=== PATIENT | male | born 1995 | race Hispanic/Latino ===

== ENCOUNTER 2024-12-20 22:17 | Emergency (ER) | payer SELFPAY ==
[~2024-12-20 22:17] MED LIST: Iopamidol-370 76% 500 ML MDV (1 ML CHARGE) ONE
[2024-12-20] MEDS ORDERED: Lidocaine 1% w/Epinephrine 1:100K 20 ML VIAL ONE (22:36)
[2024-12-20] MEDS ORDERED: Ondansetron PF 4 MG/2 ML Vial ONE (23:22)
[2024-12-20] MEDS ORDERED: Boostrix 0.5 ML (Tdap) VIAL (>/=7 yrs of age) ONE (23:23)
== END 2024-12-21 01:11 | disposition home or self-care (01) ==
LOC: ERS 22:17
DX: S01.01XA Laceration without foreign body of scalp, initial encounter (principal); S40.211A Abrasion of right shoulder, initial encounter; W55.22XA Struck by cow, initial encounter; Z23 Encounter for immunization
CPT/HCPCS: 12002; 70450; 71045; 71260; 72125; 74177; 90471; 90715; 96374; 96375; G0390; J2405; J3010; Q9967